=== PATIENT | female | born 1970 | race Caucasian/White ===

== ENCOUNTER 2025-04-11 10:32 | Emergency (ER) | payer BC, MEDICAID ==
[~2025-04-11] VITALS: Ht 167.6 cm; Wt 75.0 kg
[~2025-04-11 10:32] MED LIST: DIPH103G TP
[2025-04-11 10:33] VITALS: BP 169/87; PULSE 89; RESP 18; TEMP 97.5; O2SAT 100
--- NOTE | 2025-04-11 10:45 | Physician Documentation ---
History of Present Illness ~ Chief Complaint: Neck pain Stated Complaint: NECK PAIN Time Seen by MD: 10:44 HPI 54 yr old female presents to ER due to two days of neck pain with spasm/reduced ROM. Denies IVDU or trauma. Denies chills, fever, N/V, CP, or dyspnea. No distal parasthesia or weakness. Medication Reconciliation Allergies: Coded Allergies: codeine (Verified Allergy, Unknown, 04/11/25) Scheduled Methylprednisolone (Medrol Dosepak), 0 PO UD Naproxen (Naproxen), 1 TAB PO Q12H Tizanidine Hcl (Zanaflex), 1 TAB PO Q8H Scheduled PRN Diphenhydramine Hcl (Benadryl Itch Stopping), 118 ML TP QID PRN Past Medical History Drug Use: methamphetamine Lives In: Homeless Review of Systems ROS As stated above in the HPI, otherwise all systems are reviewed and negative. Physical Exam Vital Signs: Temperature: 97.5, Source: Temporal, Heart Rate: 89, Respiratory Rate: 18, BP: 169/87, Pulse Oximetry: 100, Weight: 75.000 Oxygen Flow Rate: 0 Physical Exam General: Alert, no apparent distress. Neck: Reduced/painful ROM. No midline tenderness. Palpable spasm to right of cer vical vertebrae. Respiratory: Lungs clear, no respiratory distress. Chest: No accessory muscle use. Cardiovascular: Regular rate and rhythm, no murmurs. Gastrointestinal: Soft, nontender, nondistended. Bowels sounds present. Extremities: Normal range of motion, no deformity. Neurologic: Oriented x4. Psychiatric: Normal mood and affect. Skin: Normal color, warm and dry. No edema, no ecchymosis. Progress Results/Orders Results/Orders Vital Signs 04/11/25 10:33 Temp 97.5 Pulse 89 Resp 18 B/P (MAP) 169/87 Pulse Ox 100 O2 Flow Rate 0 Medical Decision Making Differential Dx:Considerations: Include: Cervical muscle spasm, Discitis, DJD, Meningitis, Thyroiditis, Torticollis, Vertebral artery dissect. Additional Comment No IVUD No fevers No parasthesia. No imaging needed. Patient sent with medications for torticollis and instructed to f/u with PCP or return if worse. Departure Time of Disposition: 10:46 Disposition: 01 HOME / SELF CARE / HOMELESS Impression: Primary Impression: Torticollis Condition: Stable Discharge Instructions: Acute Torticollis, Adult Additional Instructions: Take the prescribed medications as needed for pain/spasm. See your PCP soon and request referral for PT. May need CT or MRI after PT and may eventually need to see a spinal specialist. Return if worse. Referrals: NO PRIMARY CARE PROVIDER (PCP) Prescriptions Tizanidine Hcl (Zanaflex) 2 Mg Tablet 1 TAB PO Q8H for spasm for 10 Days, #30 TAB 0 Refills Prov: JENNIFER SANTOS NP 04/11/25 Naproxen (Naproxen) 500 Mg Tablet 1 TAB PO Q12H, #20 TAB Prov: JENNIFER SANTOS NP 04/11/25 Methylprednisolone (Medrol Dosepak) 4 Mg Tab.ds.pk 0 PO UD, #21 TAB 0 Refills take 6 Pills Day 1, 5 Pills Day 2, 4 Pills Day 3, 3 Pills Day 4, 2 Pills Day 5 and 1 pill Day 6 Prov: JENNIFER SANTOS NP 04/11/25 Education Educated: Patient Educated regarding: diagnosis, treatment, prognosis, need for follow up Signature Scribe Signature: no scribe Attestation: The note accurately reflects work and decisions made by me.Jennifer Weber NP 04/11/25 11:13 JENNIFER SANTOS NP Apr 11, 2025 10:45
[2025-04-11] MEDS ORDERED: METH4TAB81 PO (10:47)
[2025-04-11] MEDS ORDERED: TIZA-189 PO (10:47)
[2025-04-11] MEDS ORDERED: NAPR-56 PO (10:47)
== END 2025-04-11 10:56 | disposition home or self-care (01) ==
LOC: ER 10:32
DX: M43.6 Torticollis (principal); F15.90 Other stimulant use, unspecified, uncomplicated; Z88.5 Allergy status to narcotic agent; Z79.899 Other long term (current) drug therapy; Z59.00 Homelessness unspecified
CPT/HCPCS: 99283